=== PATIENT | male | born 1955 | race Caucasian/White ===

== ENCOUNTER 2018-03-14 22:32 | Emergency (ER) | payer MEDICARE, MEDICAID ==
[2018-03-15 02:15] VITALS: BP 160/82
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
== END 2018-03-15 01:35 | disposition home or self-care (01) ==
LOC: ED 22:32
DX: F32.9 Major depressive disorder, single episode, unspecified (principal)
CPT/HCPCS: 99284

== ENCOUNTER 2019-09-18 17:47 | Emergency (ER) | payer MEDICARE, MEDICAID ==
--- OUTSIDE RECORDS SUMMARY | 2019-09-18 18:13 | XMS REPORT | Summary of Care ---
:1955 Author Organization [facility] Address [address] [address] Care Team Providers Name Role Phone Jerilyn Nickerson Primary Care Provider Reason for Visit Reason Comments Hypertension B/P check Encounter Details Date Type Department Care Team Description 08/28/2019 Office Visit [facility] Dani Ahn, Hypertension, unspecified type (Primary Dx); Practice [address] Chest pressure [address] [place] [address] [place] [address] [phone] Allergies Active Allergy Reactions Severity Noted Date Comments Atorvastatin GI Reaction 02/20/2016 dirarrhea / gas Simvastatin GI Reaction 02/20/2016 N/D cramps/gas documented as of this encounter (statuses as of 09/01/2019) Medications Medication Sig Dispensed Refills Start End Date Status Date atropine 1 % Ophthalmic Place 1 Drop 0 Active Solution in right eye DAILY. prednisoLONE acetate Place 1 Drop 0 Active (PRED FORTE) 1 % in right eye Ophthalmic Suspension DAILY. fluocinonide (LIDEX) 0.05 Apply twice 30 g 1 Active % Apply externally Cream daily 8 sucralfate (CARAFATE) 1 Take 1 Tab 60 Tab 2 Active GM Oral TabIndications: by mouth 8 Dyspepsia EVERY SIX HOURS NEEDED (stomach pain). Crush in fluid Take on empty stomach Omeprazole 40 MG Oral TAKE ONE 30 Cap 5 Active CAPSULE DELAYED RELEASE CAPSULE BY 9 MOUTH ONCE DAILY DIRECTED gabapentin (NEURONTIN) TAKE ONE 90 Cap 5 Active 300 MG Oral Cap CAPSULE BY 9 MOUTH THREE TIMES A DAY fenofibrate (TRICOR) 145 TAKE ONE 90 Tab 3 Active MG Oral TabIndications: TABLET BY 9 Pure hypercholesterolemia MOUTH ONCE DAILY allopurinol (ZYLOPRIM) TAKE TWO 180 Tab 3 Active 100 MG Oral TABLETS BY 9 TabIndications: MOUTH EVERY Idiopathic gout, DAY unspecified chronicity, unspecified site citalopram (CELEXA) 40 MG Take 1 Tab 90 Tab 3 Active Oral Tab by mouth 9 DAILY. tramadol (ULTRAM) 50 MG Take 50 mg 0 Active Oral Tab by mouth EVERY EIGHT HOURS NEEDED. amLodipine (NORVASC) 5 MG Take 1 Tab 30 Tab 0 Active Oral TabIndications: by mouth 9 Hypertension, unspecified DAILY. type HYDROcodone-acetaminophen Take 1 Tab 0 08/28/20 Discontinued (NORCO) 7.5-325 MG Oral by mouth 19 Tab EVERY EIGHT HOURS NEEDED. aspirin 325 MG Oral Tab Take 112.5 0 08/28/20 Discontinued mg by mouth 19 DAILY. nystatin-triamcinolone 1 g by 1 Tube 2 08/28/20 Discontinued (MYCOLOG) 513899-1.1 Topical 6 19 UNIT/GM-% Apply route TWICE externally Cream DAILY. documented as of this encounter (statuses as of 09/01/2019) Active Problems Problem Noted Date Gout 03/21/2016 Lipid disorder 09/13/2015 Overview: 09/11 ACC cardiac risk 9.2 % ( 5% with treatment ) Lifetime risk 50 % - 5% with optimization TC 340 / HDL 63 Triglycerides 700 Chronic low back pain 09/12/2015 Depression 09/12/2015 Overview: PHQ9 Mild - moderate Right eye injury 09/12/2015 Multiple gastric ulcers 09/12/2015 Overview: Colon 2010 documented as of this encounter (statuses as of 09/01/2019) Immunizations Name Administration Dates Next Due Influenza (IM) Preservative Free 08/23/2019, 09/23/2018 documented as of this encounter Social History Tobacco Use Types Packs/Day Years Used Date Never Smoker Smokeless Tobacco: Never Used Alcohol Use Drinks/Week oz/Week Comments Not Asked 0 Standard drinks or equivalent 0.0 Sex Assigned at Date Recorded Not on file Job Start Date Occupation Industry Not on file Not on file Not on file Travel History Travel Start Travel End No recent travel history available. documented as of this encounter Last Filed Vital Signs Vital Sign Reading Time Taken Comments Blood Pressure 142/60 08/28/2019 8:50 AM EDT Pulse 66 08/28/2019 8:33 AM EDT Temperature 36.1 08/28/2019 8:33 AM C (97 EDT F) Respiratory Rate 18 08/28/2019 8:33 AM EDT Oxygen Saturation 99% 08/28/2019 8:33 AM EDT Inhaled Oxygen Concentration - - Weight 79.2 kg (174 lb 11.2 oz) 08/28/2019 8:33 AM EDT Height 170.2 cm (5' 7") 08/28/2019 8:33 AM EDT Body Mass Index 27.36 08/28/2019 8:33 AM EDT documented in this encounter Patient Instructions Patient InstructionsDani Ahn DO - 08/28/2019 8:20 AM EDTStart amlodipine Work with primary care regarding cholesterol. See her back in 3 weeks Any time chest pain again, call 911 documented in this encounter Progress Notes Dani Ahn DO - 08/28/2019 8:20 AM EDT PATIENT: Eris Alston : 1955 DATE OF SERVICE: 08/28/2019 CHIEF COMPLAINT: Chief Complaint Patient presents with Hypertension B/P check Subjective HISTORY OF PRESENT ILLNESS: Eris Alston is a 64-y.o. male. HPI Here with concern of developing hypertension Readings at local pharmacy show systolic into 150's and that concerned him 1+ week ago had chest pain at rest. Had emotional disturbance that day Never had it again No chest pain with exertion No sweats Stress test in may 2018 negative History reviewed. No pertinent past medical history. History reviewed. No pertinent family history. Current Outpatient Medications Medication Sig allopurinol (ZYLOPRIM) 100 MG Oral Tab TAKE TWO TABLETS BY MOUTH EVERY DAY amLodipine (NORVASC) 5 MG Oral Tab Take 1 Tab by mouth DAILY. atropine 1 % Ophthalmic Solution Place 1 Drop in right eye DAILY. citalopram (CELEXA) 40 MG Oral Tab Take 1 Tab by mouth DAILY. fenofibrate (TRICOR) 145 MG Oral Tab TAKE ONE TABLET BY MOUTH ONCE DAILY fluocinonide (LIDEX) 0.05 % Apply externally Cream Apply twice daily gabapentin (NEURONTIN) 300 MG Oral Cap TAKE ONE CAPSULE BY MOUTH THREE TIMES A DAY Omeprazole 40 MG Oral CAPSULE DELAYED RELEASE TAKE ONE CAPSULE BY MOUTH ONCE DAILY DIRECTED prednisoLONE acetate (PRED FORTE) 1 % Ophthalmic Suspension Place 1 Drop in right eye DAILY. sucralfate (CARAFATE) 1 GM Oral Tab Take 1 Tab by mouth EVERY SIX HOURS NEEDED (stomach pain). Crush in fluid Take on empty stomach tramadol (ULTRAM) 50 MG Oral Tab Take 50 mg by mouth EVERY EIGHT HOURS NEEDED. No current facility-administered medications for this visit. Allergies Allergen Reactions Lipitor [Atorvastatin] GI Reaction dirarrhea / gas Simvastatin GI Reaction N/D cramps/gas Social History Socioeconomic History Marital status: Spouse name: Not on file Number of children: Not on file Years of education: Not on file Highest education level: Not on file Occupational History Not on file Social Needs Financial resource strain: Not on file Food insecurity: Worry: Not on file Inability: Not on file Transportation needs: Medical: Not on file Non-medical: Not on file Tobacco Use Smoking status: Never Smoker Smokeless tobacco: Never Used Substance and Sexual Activity Alcohol use: Not on file Drug use: Not on file Sexual activity: Not on file Lifestyle Physical activity: Days per week: Not on file Minutes per session: Not on file Stress: Not on file Relationships Social connections: Talks on phone: Not on file Gets together: Not on file Attends sikhism service: Not on file Active member of club or organization: Not on file Attends meetings of clubs or organizations: Not on file Relationship status: Not on file Intimate partner violence: Fear of current or ex partner: Not on file Emotionally abused: Not on file Physically abused: Not on file Forced sexual activity: Not on file Other Topics Concern Not on file Social History Narrative Business owner professional engineer - [employer] REVIEW OF SYSTEMS: Review of Systems Constitutional: Negative for fever. Cardiovascular: Negative for palpitations. Neurological: Negative for dizziness. Objective PHYSICAL EXAM: VITALS: BP 142/60 | Pulse 66 | Temp 97 F (36.1 C) (Tympanic) | Resp 18 | Ht 5' 7" (1.702 m) | Wt 174 lb 11.2 oz (79.2 kg) | SpO2 99% | BMI 27.36 kg/m Body mass index is 27.36 kg/m. Physical Exam Cardiovascular: Rate and Rhythm: Normal rate and regular rhythm. Comments: No lower extremity edema Pulmonary: Effort: Pulmonary effort is normal. Breath sounds: Normal breath sounds. Neurological: Mental Status: He is alert. ASSESSMENT / IMPRESSION: ICD-9-CM ICD-10-CM 1. Hypertension, unspecified type 401.9 I10 amLodipine (NORVASC) 5 MG Oral Tab 2. Chest pressure 786.59 R07.89 AMBULATORY 12 LEAD EKG (GLOBAL) Plan EKG today shows NSR without any ST abnormality His chest pain is likely from emotional disturbance. Maybe microscopic angina from hypertension: start anti hypertensive and see pcp Patient Instructions Start amlodipine Work with primary care regarding cholesterol. See her back in 3 weeks Any time chest pain again, call 911 Author: Dani Ahn DO 09/01/2019 08:54 documented in this encounter Plan of Treatment Date Type Specialty Care Team Description 09/22/2019 Office Visit Internal Medicine Jerilyn Nickerson MD [address] [place] [address] [phone] Name Type Priority Associated Diagnoses Order Schedule AMBULATORY 12 LEAD EKG EKG Routine Chest pressure Ordered: 08/28/2019 (GLOBAL) Health Maintenance Due Date Last Done Comments MEDICARE ANNUAL WELLNESS 1955 VISIT COLONOSCOPY SCREENING 2007 ZOSTER IMMUNIZATION SERIES 2007 (1 of 2) DEPRESSION SCREENING 07/06/2020 07/06/2019 DIABETES SCREENING 07/06/2020 07/06/2019, 03/03/2019, 11/15/2018, Additional history exists LIPID DISORDER SCREENING 03/03/2024 03/03/2019, 03/01/2017, 12/05/2016, Additional history exists INFLUENZA VACCINE Completed 08/23/2019, 09/23/2018 HPV IMMUNIZATION SERIES Aged Out No longer eligible based on patient's age to complete this topic MENINGOCOCCAL VACCINE IMM Aged Out No longer eligible based on patient's age to complete this topic PNEUMOCOCCAL 0-64 YRS Aged Out No longer eligible based on patient's age to complete this topic documented as of this encounter Goals Goal Patient Goal Associated Recent Patient-Stated? Author Type Problems Progress Depression Depression No Remy, screen (PHQ-9) Mary Jo, total score < 5 BOZENA Note: This is an individualized treatment (depression) goal for Eris Alston: Displayed above is your goal for a depression screening (PHQ-9) score that would indicate good control of your depression. Keep a regular sleep schedule Lifestyle No Mary Jo Alberto PA-C Note: This is an individualized lifestyle goal for Eris Alston: Please maintain a regular sleep schedule. This may help with some symptoms of depression. Take all prescribed medications as Self-management No Mary Jo Alberto PA-C directed Note: This is an individualized self-management goal for Eris Alston: Please take all prescribed medications as directed. 1. Do not skip doses. If you cannot afford your medications, talk with your doctor. 2. Use a pill reminder system such as a pill box if needed. Your pharmacist can help you with this. 3. Contact your Pharmacy 5 days before your medication runs out. If you cannot take your medications for any reasons, talk with your doctor. 4. Please bring all of your medication bottles and inhalers (or a list of all your medications/inhalers) with you to every visit. Potential barriers to meeting all of your care plan goals will continue to be addressed on an ongoing basis. documented as of this encounter Results Not on filedocumented in this encounter Visit Diagnoses Diagnosis Hypertension, unspecified type - Primary Chest pressure Other chest pain documented in this encounter Insurance Payer Benefit Plan / Subscriber ID Effective Phone Address Type Group Dates UHC MEDICARE UNITED xxxxxxxxx 2017-Prese UHC ADVANTAGE HEALTHCARE nt MEDICARE ADVANT[place] xxxxxxxx 2017-[facility] Medicaid [place] MEDICA[place] nt Guarantor Name Account Type Relation to Date of Phone Billing Patient Address Eris Alston Personal/Family 1955 [address] [phone] ANITHA MACDONALD [id number] (Work) documented as of this encounter
[2019-09-18] MEDS ORDERED: Ibuprofen TAB* 600 MG PO ONE (21:02)
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
[2019-09-18 22:53] VITALS: BP 158/92
== END 2019-09-18 22:51 | disposition home or self-care (01) ==
LOC: ED 17:47
DX: M79.18 Myalgia, other site (principal); D64.9 Anemia, unspecified
CPT/HCPCS: 99282; A9270-GY

== ENCOUNTER 2021-01-11 15:58 | Observation (INO) ==
[2021-01-11 19:19] LABS: Albumin 4.3 g/dL (3.2-5.2); Calcium 9.2 mg/dL (8.6-10.3); Potassium 4.3 mmol/L (3.5-5.0); Total Bilirubin 0.6 mg/dL (0.2-1.0)
[2021-01-11 19:25] LABS: Albumin/Globulin Ratio 1.8 (1-3); BUN/Creatinine Ratio 9.6 (8-20); C Reactive Protein 120.18 mg/L (<8.01); EGFR African American 98.1 (>60); EGFR Non-African American 81.1 (>60); Globulin 2.4 g/dL (2-4); Total Protein 6.7 g/dL (6.4-8.9)
[2021-01-11] MEDS ORDERED: NS 0.9% 1000 ml BAG 1,000 ML IV ONE ×2 (19:54→21:43)
[2021-01-11] MEDS ORDERED: Iohexol 300 (CONTRAST) 10 ML SDV IV ONE (20:06)
[2021-01-11 20:32] LABS: ABS Lymphocytes 0.9 10^3/ul (1.0-4.8); ABS Monocytes 0.6 10^3/ul (0-0.8); ABS Neutrophils 6.6 10^3/ul (1.5-7.7); Eosinophil % 0.2 %; Hematocrit 35 % (42-52); Hemoglobin 11.8 g/dL (14.0-18.0); Lymphocyte % 11.2 %; Mean Corpuscular HGB Conc 33 g/dL (31-36); Mean Corpuscular Hemoglobin 29 pg (27-31); Mean Corpuscular Volume 88 fL (80-94); Mean Platelet Volume 8.9 fL (7.4-10.4); Platelet Count 187 10^3/uL (150-450); Red Cell Distribution Width 13 % (10-15); White Blood Count 8.1 10^3/uL (3.5-10.8)
[2021-01-11] MEDS ORDERED: Piperacillin/Tazobac ADVAN 3.375 GM in NS 0.9% 100 ml BAG 100 ML IV ONE (21:44)
[2021-01-11 22:15] LABS: Urine Appearance Clear; Urine Bilirubin Negative (Negative); Urine Blood Negative (Negative); Urine Color Yellow; Urine Glucose Negative (Negative); Urine Ketones Negative (Negative); Urine Nitrite Negative (Negative); Urine Protein Negative (Negative); Urine Specific Gravity 1.027 (1.010-1.030); Urine Urobilinogen Negative (Negative)
[2021-01-11] MEDS ORDERED: Ondansetron 4 mg VIAL 2 MG/ML 2 ml VIAL IV PRN (22:29)
[2021-01-12] MEDS: Morphine 2 MG/ML SYRINGE IV PRN ×2 (01:45→03:38)
[2021-01-12] MEDS: NS 0.9% 1000 ml BAG 1,000 ML IV SCH ×3 (01:45→19:44)
[2021-01-12] MEDS: Piperacillin/Tazobactam VIAL 3.375 GM in NS 0.9% 100 ml BAG 100 ML IVPB SCH ×3 (01:50→17:52)
[2021-01-12] MEDS ORDERED: fentaNYL 250 mcg/5 ml 50 MCG/ML 5 ml VIAL (250 MCG) ONE ×2 (06:03→08:27)
[2021-01-12] MEDS ORDERED: Ondansetron 4 mg VIAL 2 MG/ML 2 ml VIAL ONE (06:03)
[2021-01-12] MEDS ORDERED: Propofol 10 MG/ML 20 ML BTL ONE (06:03)
[2021-01-12] MEDS ORDERED: Bupivacaine 0.25% EPI 200,000 30 ML SDV ONE (06:06)
[2021-01-12 06:26] LABS: ABS Monocytes 0.6 10^3/ul (0-0.8); ABS Neutrophils 6.5 10^3/ul (1.5-7.7); Eosinophil % 0.1 %; Hematocrit 33 % (42-52); Hemoglobin 11.4 g/dL (14.0-18.0); Lymphocyte % 12.1 %; Mean Corpuscular HGB Conc 34 g/dL (31-36); Mean Corpuscular Hemoglobin 30 pg (27-31); Mean Corpuscular Volume 88 fL (80-94); Mean Platelet Volume 8.8 fL (7.4-10.4); Platelet Count 191 10^3/uL (150-450); Red Blood Count 3.79 10^6 /uL (4.18-5.48); Red Cell Distribution Width 13 % (10-15); White Blood Count 8.2 10^3/uL (3.5-10.8)
[2021-01-12 06:41] LABS: Calcium 8.5 mg/dL (8.6-10.3); EGFR African American 91.3 (>60); EGFR Non-African American 75.5 (>60); Potassium 3.7 mmol/L (3.5-5.0)
[2021-01-12] MEDS ORDERED: Lidocaine 2% PF 5 ML VIAL ONE (06:45)
[2021-01-12] MEDS ORDERED: Naloxone 0.4 mg VIAL 0.4 mg/ml 1 ml VIAL IV PRN (07:19)
[2021-01-12] MEDS ORDERED: Ondansetron 4 mg VIAL 2 MG/ML 2 ml VIAL IV PRN (07:19)
[2021-01-12] MEDS ORDERED: fentaNYL 100 mcg/2 ml 50 MCG/ML VIAL IV PRN (07:19)
[2021-01-12] MEDS ORDERED: DiMENhydriNATE IV 50 mg/ml 1 ml VIAL IV PUSH PRN (07:19)
[2021-01-12] MEDS ORDERED: oxyCODONE/Acetamin 5/325 mg TAB PO PRN (07:19)
[2021-01-12] MEDS ORDERED: Rocuronium 50 mg VIAL 10 mg/ml 5 ml VIAL (50 mg) ONE ×2 (07:29→07:36)
[2021-01-12] MEDS ORDERED: fentaNYL 100 mcg/2 ml 50 MCG/ML VIAL ONE (07:38)
[2021-01-12] MEDS: HYDROmorphone 0.5 MG/0.5 ML SYRINGE IV SLOW PU PRN ×2 (11:25→17:51)
[2021-01-12] MEDS: oxyCODONE/Acetamin 5/325 mg TAB PO PRN ×2 (13:17→21:01)
[2021-01-13] MEDS: oxyCODONE/Acetamin 5/325 mg TAB PO PRN (03:08)
[2021-01-13] MEDS: Piperacillin/Tazobactam VIAL 3.375 GM in NS 0.9% 100 ml BAG 100 ML IVPB SCH ×2 (03:10→10:40)
[2021-01-13] MEDS: NS 0.9% 1000 ml BAG 1,000 ML IV SCH (03:20)
[2021-01-13 11:58] VITALS: BP 126/49
== END 2021-01-13 13:05 | disposition home or self-care (01) ==
LOC: SSU 15:58 → ED 15:58 → SSU 01-12 00:04
PROVIDERS: ADMIT Surgery; ATTEND Surgery